=== PATIENT | female | born 1990 | race Caucasian/White ===

== ENCOUNTER 2017-02-03 23:09 | Emergency (ER) | payer OTHER ==
[2017-02-04 02:42] VITALS: BP 110/63
--- NOTE | 2017-02-04 07:50 | ED ---
Obdulia Escoto Rebecca, scribed for Yevgeniy Vale MD on 02/04/17 at 0318 . GI/ HPI - HPI Summary HPI Summary: Pt is a 26 y/o F who presents to ED c/o blood in stool. Pt reports an episode of bright red blood after a normal BM at 2200, found in the water, described as "tons of red in the water." Pt reports that the stool sample collected in the ED appeared to be normal. Denies abd pain, lightheadedness. Sx aggravated and alleviated by nothing. PMHx hemorrhoids which had smaller amounts of blood. States that she ate a lot of strawberries earlier today. Just started a new medication today (Pristiq). - History of Current Complaint Chief Complaint: EDGeneral Time Seen by Provider: 02/04/17 03:09 Stated Complaint: BLOOD IN STOOL Hx Obtained From: Patient Onset/Duration: Resolved - 1 episode Timing: Intermittent - 1 episode Current Severity: None Vaginal Bleeding Description: Bright Red Pain Intensity: 0 Associated Signs and Symptoms: Positive: Bright Red Blood w/Stool. Negative: Lightheadedness, Abdominal Pain Aggravating Factor(s): Nothing Alleviating Factor(s): Nothing - Allergy/Home Medications Allergies/Adverse Reactions: Allergies Allergy/AdvReac Type Severity Reaction Status Date / Time environmental Allergy Congestion Uncoded 02/03/17 23:19 PMH/Surg Hx/FS Hx/Imm Hx Endocrine/Hematology History: Denies: Hx Diabetes Cardiovascular History: Denies: Hx Hypertension, Hx Pacemaker/ICD History: Denies: Hx Renal Disease Sensory History: Denies: Hx Hearing Aid Psychiatric History: Denies: Hx Panic Disorder - Surgical History Surgery Procedure, Year, and Place: HERNIA REPAIR TODDLER Infectious Disease History: Denies: Traveled Outside the [place] in Last 30 Days - Family History Known Family History: Positive: Hypertension, Diabetes - Social History Alcohol Use: Occasionally Substance Use Type: Reports: None Smoking Status (MU): Never Smoked Tobacco Review of Systems Negative: Abdominal Pain Positive: other - Bright red blood w/ stool 1x Neurological: Other - Denies lightheadedness All Other Systems Reviewed And Are Negative: Yes Physical Exam - Summary Physical Exam Summary: General: well-appearing, no pain distress Skin: warm, color reflects adequate perfusion, dry Head: normal Eyes: EOMI, ML ENT: normal Neck: supple, nontender Respiratory: CTA, breath sounds present Cardiovascular: RRR Abdomen: soft, nontender Bowel: present Musculoskeletal: normal, strength/ROM intact Neurological: normal, sensory/motor intact, A&O x3 Psychological: affect/mood appropriate Triage Information Reviewed: Yes Vital Signs On Initial Exam: Initial Vitals Temp Pulse Resp BP Pulse Ox 98.2 F 87 16 136/84 100 02/03/17 23:15 02/03/17 23:15 02/03/17 23:15 02/03/17 23:15 02/03/17 23:15 Vital Signs Reviewed: Yes - Luis Carlos Coma Scale Coma Scale Total: 15 Diagnostics - Vital Signs Vital Signs Temp Pulse Resp BP Pulse Ox 02/04/17 02:42 65 110/63 02/04/17 02:41 69 116/63 02/04/17 02:40 69 115/64 02/04/17 02:11 68 16 117/63 98 02/04/17 00:44 98.2 F 69 16 101/58 99 02/03/17 23:15 98.2 F 87 16 136/84 100 - Laboratory Lab Statement: Any lab studies that have been ordered have been reviewed, and results considered in the medical decision making process. GIGU Course/Dx - Course Course Of Treatment: NO CRITICAL CARE TIME. STOOL IS NOT RED IN ED AND IT IS HEME NEGATIVE. ORTHOSTATICS WNL. IT IS UNKNOWN IF THE RED STOOL WAS BLOOD. PATIENT FEELS WELL. DISCHARGE HOME STABLE. - Diagnoses Provider Diagnoses: Red stool Discharge - Discharge Plan Condition: Stable Disposition: HOME Referrals: Urvashi Watkins [Primary Care Provider] - Additional Instructions: FOLLOW UP WITH [facility] FOR YOUR RED STOOL. RETURN TO THE EMERGENCY DEPARTMENT FOR ANY WORSENING OF YOUR CONDITION; BLOODY STOOLS, YOU FEEL ILL, YOU FEEL LIGHTHEADED OR QUESTIONS OR CONCERNS. The documentation as recorded by the Obdulia hamilton Rebecca accurately reflects the service I personally performed and the decisions made by me, Yevgeniy Vale MD.
== END 2017-02-04 03:44 | disposition home or self-care (01) ==
LOC: ED 23:09
DX: R19.5 Other fecal abnormalities (principal)
CPT/HCPCS: 82270; 99282

== ENCOUNTER 2018-03-03 20:45 | Emergency (ER) | payer OTHER ==
[2018-03-03 20:56] VITALS: BP 00/00
--- NOTE | 2018-03-03 22:10 | UC ---
Lower Extremity/Ankle HPI - HPI Summary HPI Summary: jammed right pinky toe several times on bed frame in the past, she did it again tonight. States she can bear weight and ambulate, but would like an xray to be reassured there is no fracture. - History of Current Complaint Chief Complaint: UCLowerExtremity Stated Complaint: TOE INJURY Time Seen by Provider: 03/03/18 21:54 Hx Obtained From: Patient Hx Last Menstrual Period: one week ago ?: No Onset/Duration: Sudden Onset, Lasting Hours Severity Initially: Mild Severity Currently: Moderate Pain Intensity: 5 Aggravating Factor(s): Standing, Ambulation Alleviating Factor(s): Rest, Ice - Risk Factors Gout Risk Factors: Negative DVT Risk Factors: Oral Contraceptives Septic Arthritis Risk Factor: Negative - Allergies/Home Medications Allergies/Adverse Reactions: Allergies Allergy/AdvReac Type Severity Reaction Status Date / Time environmental Allergy Congestion Uncoded 03/03/18 20:57 Home Medications: Home Medications Desvenlafaxine(NF) [Pristiq(NF)] 1 tab PO DAILY 03/03/18 [History Confirmed 12/14] traZODone TAB* [Desyrel TAB*] 25 mg PO DAILY 03/03/18 [History Confirmed ] PMH/Surg Hx/FS Hx/Imm Hx Previously Healthy: Yes - Surgical History Surgical History: Yes Surgery Procedure, Year, and Place: HERNIA REPAIR TODDLER - Family History Known Family History: Positive: Hypertension, Diabetes - Social History Alcohol Use: Occasionally Substance Use Type: None Smoking Status (MU): Never Smoked Tobacco Review of Systems Constitutional: Negative Musculoskeletal: Arthralgia, Myalgia All Other Systems Reviewed And Are Negative: Yes Physical Exam Triage Information Reviewed: Yes Appearance: Well-Appearing, No Pain Distress, Well-Nourished Vital Signs: Initial Vital Signs Temp 98.4 F 03/03/18 20:52 Pulse 64 03/03/18 20:52 Resp 18 03/03/18 20:52 BP 00/00 03/03/18 20:52 Pulse Ox 100 03/03/18 20:52 ENT: Positive: Hearing grossly normal Neck: Positive: Supple Cardiovascular: Positive: Pulses Normal, Brisk Capillary Refill Musculoskeletal: Positive: Other: - tender on palpation of right 5th toe, no swellling or redness, ambulation and gait wnl, FROM toes. Distal pulses preserved, capillary refill brisk Lower Extremity Course/Dx - Course Course Of Treatment: continue RICE. f/u PCP, wear protective footwear - Differential Dx/Diagnosis Provider Diagnoses: Toe blunt trauma Discharge - Sign-Out/Discharge Documenting (check all that apply): Patient Departure, Post-Discharge Follow Up - Discharge Plan Condition: Good Disposition: HOME Referrals: Urvashi Watkins [Primary Care Provider] - - Billing Disposition and Condition Condition: GOOD Disposition: Home
--- NOTE | 2018-03-04 07:32 | RAD ---
INDICATION: Right first toe injury COMPARISON: None TECHNIQUE: AP, lateral, and oblique views were obtained. FINDINGS: There is no acute fracture or dislocation. There is soft tissue swelling at the fifth MTP joint. IMPRESSION: NO ACUTE FRACTURE. R0
== END 2018-03-03 22:45 | disposition home or self-care (01) ==
LOC: UCEAST 20:45
DX: M79.674 Pain in right toe(s) (principal)
CPT/HCPCS: 99212; G0463

== ENCOUNTER 2018-11-29 01:50 | Observation (INO) | payer OTHER ==
--- NOTE | 2018-11-29 02:40 | ED ---
Substance Abuse/Use - HPI Summary HPI Summary: This patient is a 28 year old F presenting to [facility] with a chief complaint of accidental overdose since tonight. She was trying to take medication to help her sleep but she took a second dose of both her antidepressants instead. Her typical medications are 20 mg Lexapro and 300 mg Wellbutrin. She took her first dose at 17:00 11/28/18 and took the second accidental dose at 01:00 11/29/18. Patient reports feeling tired. LNMP was 3 weeks ago. Pt denies . - History Of Current Complaint Chief Complaint: EDOverdose Stated Complaint: TOOK 2 DOSES OF MEDICATION PER PT. Time Seen by Provider: 11/29/18 02:06 Hx Obtained From: Patient Hx Last Menstrual Period: one week ago ?: No Onset/Duration of Drug/ETOH Abuse: Hours Ingestion History: Type/Name Of Drug - Lexapro and Wellbutrin, Amount Ingested - 40 mg Lexapro, 600 mg Wellbutrin, Approximate Time Of Ingestion - half at 17: 00 11/28/18, second half at 01:00 11/29/18 Overdose Characteristics: Oral Aggravating Factor(s): Nothing Alleviating Factor(s): Nothing Associated Signs And Symptoms: Other: - Feeling tired - Allergies/Home Medications Allergies/Adverse Reactions: Allergies Allergy/AdvReac Type Severity Reaction Status Date / Time environmental Allergy Congestion Uncoded 11/29/18 02:14 Home Medications: Home Medications Lexapro * 20 mg PO DAILY 11/29/18 [History Confirmed 11/29/18] Wellbutrin XL * 300 mg PO DAILY 11/29/18 [History Confirmed 11/29/18] PMH/Surg Hx/FS Hx/Imm Hx Endocrine/Hematology History: Denies: Hx Diabetes Cardiovascular History: Denies: Hx Hypertension, Hx Pacemaker/ICD History: Denies: Hx Renal Disease Sensory History: Denies: Hx Hearing Aid Psychiatric History: Denies: Hx Panic Disorder - Surgical History Surgery Procedure, Year, and Place: HERNIA REPAIR TODDLER Infectious Disease History: No Infectious Disease History: Denies: Traveled Outside the [place] in Last 30 Days - Family History Known Family History: Positive: Hypertension, Diabetes - Social History Alcohol Use: Occasionally Substance Use Type: Reports: None Smoking Status (MU): Never Smoked Tobacco Review of Systems Positive: Fatigue, Other - Trouble sleeping. Negative: Fever Psychological: Other - Accidental overdose All Other Systems Reviewed And Are Negative: Yes Physical Exam - Summary Physical Exam Summary: Appearance: well appearing, no pain distress Skin: warm, dry, reflects adequate perfusion Head/face: normal Eyes: EOMI, ML ENT: mucous membranes moist Neck: supple, non-tender Respiratory: CTA, breath sounds present Cardiovascular: RRR, pulses symmetrical Abdomen: non-tender, soft Bowel Sounds: present Musculoskeletal: normal, strength/ROM intact Neuro: normal, sensory motor intact, A&Ox3 Triage Information Reviewed: Yes Vital Signs On Initial Exam: Initial Vitals Temp Pulse Resp BP Pulse Ox 98.7 F 65 20 118/63 98 11/29/18 01:51 11/29/18 01:51 11/29/18 01:51 11/29/18 01:51 11/29/18 01:51 Vital Signs Reviewed: Yes Diagnostics - Vital Signs Vital Signs Temp Pulse Resp BP Pulse Ox 11/29/18 01:51 98.7 F 65 20 118/63 98 - Laboratory Result Diagrams: 11/29/18 04:14 Lab Statement: Any lab studies that have been ordered have been reviewed, and results considered in the medical decision making process. - EKG 02:00 Cardiac Rate: NL - 72 bpm EKG Rhythm: Sinus Rhythm ST Segment: Normal Summary of EKG Findings: Normal axis, normal interval. 04:43 Cardiac Rate: NL - 63 bpm EKG Rhythm: Sinus Rhythm ST Segment: Normal Summary of EKG Findings: Normal axis, normal interval. Course/Dx - Course Course Of Treatment: Patient presents with accidental ingestion of a second dose of bupropion and Lexapro today. Total of 600 mg of bupropion were taken within 8 hours. Poison control was contacted and the insulator helper recommended observation through 5 PM tonight. Patient is fully asymptomatic and has normal EKG including QTC. Hospitalist was contacted and will place in observation. - Diagnoses Provider Diagnoses: Accidental overdose - Physician Notifications Discussed Care Of Patient With: Alex Vera - Hospitalist Time Discussed With Above Provider: 03:26 Discharge - Sign-Out/Discharge Documenting (check all that apply): Patient Departure - Admit Patient Received Moderate/Deep Sedation with Procedure: No - Discharge Plan Condition: Stable Disposition: ADMITTED TO [facility] - Billing Disposition and Condition Condition: STABLE Disposition: Admitted to [facility] - Attestation Statements Document Initiated by Abbyibsubha: Yes Documenting Scribe: Mauricio Echeverria Provider For Whom Scribe is Documenting (Include Credential): Esau Cassidy MD Scribe Attestation: Mauricio Escoto, scribed for Esau Cassidy MD on 11/29/18 at 0613. Scribe Documentation Reviewed: Yes Provider Attestation: The documentation as recorded by the Mauricio hamilton accurately reflects the service I personally performed and the decisions made by , Esau Cassidy MD Status of Scribe Document: Viewed
[2018-11-29] MEDS ORDERED: traZODone TAB* 50 MG TAB PO PRN (04:05)
[2018-11-29] MEDS ORDERED: Acetaminophen TAB* 325 MG PO PRN (04:05)
[2018-11-29 04:43] LABS: Albumin 4.5 g/dL (3.2-5.2); Albumin/Globulin Ratio 2.3 (1-3); BUN/Creatinine Ratio 20.2 (8-20); Calcium 9.2 mg/dL (8.6-10.3); EGFR African American 97.7 (>60); EGFR Non-African American 80.7 (>60); Total Bilirubin 0.4 mg/dL (0.2-1.0); Total Protein 6.5 g/dL (6.4-8.9)
--- NOTE | 2018-11-29 05:29 | ADMNOTE ---
Subjective Date of Service: 11/29/18 Interval History: HISTORY AND PHYSICAL PCP: Urvashi Watkins CC: accidental overdose HPI: Patient is a 28 year old woman with depression who was in her usual state of health earlier today. She forgot to take her morning medications on 11/28, so she took her 20 mg of Lexapro and 300 mg of Wellbutrin XL around 5pm. Then around 1am, she could not sleep, and went to take her trazodone, but by accident took additional 20 mg Lexapro and Wellbutrin XL 300mg. She had not immediate adverse effect, but she was concerned and called poison control. She was directed to the ER, and when the ER contacted poison control, it was advised that she be observed for 12 hours, until 5pm on 11/29. Family History: Findings - Father with CAD, liver disease, Mother with autoimmune disease, Brother is well Social History: Findings - PhD student at [employer], studying [place], has male fiance, no tobacco use, drinks alcohol about 2 drinks/week, no drug use Past Medical History: Findings - Depression, insomnia, PSH; hernia repair as child Review of Systems - Measurements Intake and Output: Intake and Output Last 24 Hours 11/26/18 11/27/18 11/28/18 11/29/18 06:59 06:59 06:59 06:59 Weight 72.575 kg - Review of Systems Constitutional Symptoms: Positive: Fatigue Dermatology: Positive: Normal HEENT: Positive: Normal Eyes: Positive: Normal Thyroid: Positive: Normal Pulmonary: Positive: Normal Gastroenterology: Positive: Normal Genital - Urinary: Positive: Normal Genitourinay - Female: Positive: Menses Normal Endocrinology: Positive: Normal Hematologic/Lymphatic: Negative: Anemia Neurology: Positive: Normal Psychiatry: Positive: Depression Objective Active Medications: Ambulatory Orders: Acetaminophen TAB* [Tylenol TAB*] 325 mg PO Q4H PRN 10/06/16 Lexapro * 20 mg PO DAILY 11/29/18 Wellbutrin XL * 300 mg PO DAILY 11/29/18 Trazodone HCl (Desyrel Tab*) 25 mg PO DAILY PRN PRN Reason: SLEEP Vital Signs - 8 hr 11/29/18 11/29/18 11/29/18 03:40 03:59 04:01 Temperature Pulse Rate 75 69 71 Respiratory 15 17 20 Rate Blood Pressure 108/62 124/67 (mmHg) O2 Sat by Pulse 100 100 99 Oximetry 11/29/18 11/29/18 11/29/18 04:11 04:42 04:45 Temperature 36.5 C Pulse Rate 86 77 72 Respiratory 18 21 16 Rate Blood Pressure 129/78 123/57 109/61 (mmHg) O2 Sat by Pulse 99 100 99 Oximetry Oxygen Devices in Use Now: None Appearance: alert, no distress Eyes: No Scleral Icterus Ears/Nose/Mouth/Throat: NL Teeth, Lips, Gums Neck: NL Appearance and Movements; NL JVP Respiratory: Symmetrical Chest Expansion and Respiratory Effort, Clear to Auscultation Cardiovascular: NL Sounds; No Murmurs; No JVD, RRR Abdominal: NL Sounds; No Tenderness; No Distention, No Hepatosplenomegaly Lymphatic: No Cervical Adenopathy Extremities: No Edema Skin: No Rash or Ulcers Neurological: Alert and Oriented x 3 Lines/Tubes/Other Access: Clean, Dry and Intact Peripheral IV Result Diagrams: 11/29/18 04:14 Additional Lab and Data: Laboratory Tests 11/29/18 04:14 Glucose 91 AST 15 ALT 13 EKG Data: normal sinus rhythm, normal axis, normal intervals Assess/Plan/Problems-Billing Assessment: 28 year old with accidental overdose of Wellbutrin and Lexapro - Patient Problems (1) Accidental overdose Current Visit: Yes Status: Acute Priority: High Code(s): T50.901A - POISONING BY UNSP DRUG/MEDS/BIOL SUBST, ACCIDENTAL, INIT SNOMED Code(s): 34210007 Comment: -Patient has risk of cardiac arrhythmia and seizures -Will monitor on telemetry and follow seizure precautions -In my assessment she is low risk, but will follow poison control advice and observe for 12 hours (2) Antidepressant overdose Current Visit: Yes Status: Acute Priority: Medium Code(s): T43.201A - POISONING BY UNSP ANTIDEPRESSANTS, ACCIDENTAL, INIT SNOMED Code(s): 145014031 Comment: -Lexapro and Wellbutrin at these doses are not likely to be lethal (3) DVT prophylaxis Current Visit: Yes Status: Acute Priority: Low Code(s): QKN0186 - SNOMED Code(s): 758111836 Comment: -early ambulation Status and Disposition: observation
[2018-11-29 11:55] LABS: ABS Basophils 0.1 10^3/ul (0-0.2); ABS Eosinophils 0.2 10^3/ul (0-0.6); ABS Lymphocytes 2.6 10^3/ul (1.0-4.8); ABS Monocytes 0.7 10^3/ul (0-0.8); Eosinophil % 2.6 %; Hematocrit 42 % (35-47); Hemoglobin 13.9 g/dL (12.0-16.0); Lymphocyte % 26.9 %; Mean Corpuscular HGB Conc 33 g/dL (31-36); Mean Corpuscular Hemoglobin 30 pg (27-31); Mean Corpuscular Volume 90 fL (80-97); Mean Platelet Volume 9.1 fL (7.4-10.4); Nucleated Red Blood Cells % 0.2; Platelet Count 254 10^3/uL (150-450); Red Blood Count 4.62 10^6 /uL (3.70-4.87); Red Cell Distribution Width 13 % (10.5-15); White Blood Count 9.7 10^3/uL (3.5-10.8)
[2018-11-29 17:02] VITALS: BP 107/49
--- NOTE | 2018-11-30 01:25 | DS ---
AMENDED REPORT NOW INCLUDES DESIGNATED COSIGNER CC: Dr. Skye Rodriguez; Urvashi Watkins NP * DISCHARGE SUMMARY: DATE OF ADMISSION: 11/29/18 at approximately 5 a.m. DATE OF DISCHARGE: 11/29/18 at approximately 5 p.m. ATTENDING PHYSICIAN: Dr. Skye Rodriguez * (dictated by YEVGENIY Tijerina) PRIMARY CARE PROVIDER: Urvashi Watkins NP PRIMARY DIAGNOSIS: Accidental overdose of Lexapro and Wellbutrin. SECONDARY DIAGNOSES: 1. Depression. 2. Insomnia. DISCHARGE MEDICATIONS: No new medications. Continued home medications: 1. Wellbutrin 300 mg p.o. daily. 2. Lexapro 25 mg p.o. daily. 3. Acetaminophen 325 mg p.o. q.4 hours p.r.n. pain. 4. Trazodone 25 mg p.o. daily p.r.n. insomnia. STUDIES WHILE IN THE HOSPITAL: EKG at 2 a.m. on 11/29/18, normal sinus rhythm, rate 72 beats per minute. No QT prolongation, QT is 401, no ST changes or T- wave inversions. EKG at approximately 10 a.m. on 11/29/18 mostly unchanged from prior EKG, QT is 403, normal sinus rhythm at rate of 77 beats per minute. PERTINENT LAB DATA: White blood cell 9.7, hemoglobin 13.9, hematocrit 42, platelet count 254,000. Sodium 137, potassium 4, chloride 104, carbon dioxide 26, BUN 7, creatinine 0.84, AST 15, ALT 13, alk phos 44, total bilirubin 0.4, glucose 91. HISTORY OF PRESENT ILLNESS AND HOSPITAL COURSE: The patient is a 28-year-old female with past medical history of depression and insomnia who accidentally ingested one additional dose of 20 mg of Lexapro and one additional dose of 300 mg Wellbutrin within the same 24-hour period. She was attempting to take trazodone, which she takes for insomnia and accidentally took these medications instead. She was concerned and called poison control who directed her to the emergency department. The emergency department contacted poison control upon her arrival and they recommended that she be observed for 12 hours. She was admitted on telemetry with seizure precaution. She had no issues during this hospital stay. She was tachycardic at times, though this is likely due to anxiety. EKG was normal without QT prolongation. Poison control was updated by nursing staff. On day of discharge, the patient is without dizziness, symptomatic tachycardia, palpitations, chest pain, shortness of breath and confusion. The patient reports fatigue, though she admits that this is because she was awake almost the entire night and into the morning during her admission to the hospital. During her hospital stay, she was given p.r.n. trazodone and her home Lexapro and wellbutrin were held in the setting of accidental overdose. REVIEW OF SYSTEMS: Eleven-point review of systems was completed. All pertinent positives and negatives are above in the HPI. All other systems are negative. PHYSICAL EXAMINATION ON DAY OF DISCHARGE: General: Thin, white, young female appearing in no acute distress, lying comfortably in hospital bed. Eyes: PERRL. Sclerae anicteric. EOMI. ENT: Mucous membranes moist. Neck: Without JVD. Supple. Cardiac: Regular rate and rhythm without murmurs or gallops. Lungs: Clear to auscultation throughout. Abdomen: Soft, nontender, nondistended. Extremities: Without clubbing, edema or cyanosis. Neuro: Strength 5/5 in all extremities. The patient is alert and oriented x3. Psych: The patient is pleasant and cooperative. DISCHARGE PLAN: Diet: Regular diet. Activity: The patient will return to her normal activity. Return precautions: The patient was advised to return to the hospital if she has symptomatic tachycardia that she feels is sustained. The patient advised to caution her partner of possible signs of seizure including falling and experiencing bowel or bladder incontinence, tongue biting and convulsions. The patient advised to separate her daily medications from her p.r.n. trazodone. The patient advised to call poison control as she has accidental overdose that has occurred in the future. The patient may return to taking p.r.n. trazodone for insomnia and Lexapro and Wellbutrin for depression. CONDITION ON DISCHARGE: Stable. DISPOSITION: Home. TIME SPENT: Approximately 45 minutes was spent on this discharge, approximately half of this time was spent at bedside. YEVGENIY TIJERINA [id number]/[facility] #: [id number] [place]
== END 2018-11-29 18:00 | disposition home or self-care (01) ==
LOC: ED 01:50 → MEDTELE 04:02
PROVIDERS: ADMIT Internal Medicine; ATTEND Internal Medicine
DX: T43.221A Poisoning by selective serotonin reuptake inhibitors, accidental (unintentional), initial encounter (principal); T43.291A Poisoning by other antidepressants, accidental (unintentional), initial encounter; Y92.9 Unspecified place or not applicable; F32.9 Major depressive disorder, single episode, unspecified; G47.00 Insomnia, unspecified; R53.83 Other fatigue; F41.9 Anxiety disorder, unspecified
CPT/HCPCS: 36415; 80053; 85025; 93005; 99284; A9270-GY; G0378